=== PATIENT | male | born 1960 | race Caucasian/White ===

== ENCOUNTER 2016-09-25 07:26 | Emergency (ER) | payer OTHER ==
[~2016-09-25] VITALS: Ht 188 cm; Wt 131.0 kg
[~2016-09-25 07:26] MED LIST: ADVIL; BACTDS PO; CEPH-443 PO
[2016-09-25 07:36] VITALS: Ht 188 cm; Wt 131.0 kg
[2016-09-25] MEDS ORDERED: PROM5SYR2 PO (07:54)
[2016-09-25] MEDS ORDERED: LEVO750T25 PO (07:54)
[2016-09-25 08:07] VITALS: BP 111/68; PULSE 70; RESP 20; TEMP 97.9
--- NOTE | 2016-09-25 10:34 | ERD ---
DATE OF SERVICE: 09/25/2016 HISTORY OF PRESENT ILLNESS: The patient is a 56-year-old male coming in complaining of a cough with wheezing for the last 4 days. The patient states he had a fever 4 days ago and had the flu, is now resolved; however, he has had a congested cough. He does not feel short of breath. He has been ta pacheco [id number] cough medicine with no alleviation of symptoms. He does not have a fever. PAST MEDICAL HISTORY: Denies any other medical problems. ALLERGIES TO MEDICATIONS: DENIES. PAST SURGICAL HISTORY: Denies. REVIEW OF SYSTEMS: A 12-point review of systems was done. Refer to HPI for positives, all other sy stems negative. PHYSICAL EXAMINATION: VITAL SIGNS: Temperature is 97.7, pulse 68, blood pressure is 131/68, respiratory rate 20, O2 satur ation 95% on room air. Pain intensity is 0/10. GENERAL: The patient is well-appearing, well-nourished, no acute distress. HEENT: Atraumatic. Conjunctivae are pink. Pupils equal, round, and reactive to light. There is no s cleral icterus. Tympanic membranes clear bilaterally. Oropharynx clear. No nystagmus or photophobia . CHEST: The patient has coarse breath sounds throughout with mild rhonchi. No wheezing, no stridor. HEART: Regular rate and rhythm. No murmurs, clicks, rubs or gallops. No S3 or S4. ABDOMEN: Soft, nontender and nondistended. Good bowel sounds. No rebound or guarding. No gross alisha tonitis. No gross organomegaly or masses. No Mora sign or McBurney point tenderness. DIAGNOSIS: Cough. MEDICAL DECISION MAKING: High suspicion for early pneumonia as patient's breath sounds are coarse a nd symptoms seem to be worsening over the last few days. The patient will be treated with antibioti cs. I have low suspicion for respiratory distress or hypoxia. Low suspicion for sepsis. DISCHARGE: The patient is discharged stable. The patient is given a prescription for Levaquin and Phenergan with Codeine and told to follow up with primary care within 1 to 2 days for reevaluation. The patient was told if symptoms progress or worsen, to return to the ER. All other questions answ ered at the time of discharge. Discharge summary given at the time of departure. The patient under stood and complied with plan. Dictated By: SHELBIE BEAVERS for ZIGGY SIMPSON/ALESSANDRO Conf#: [id number] DID#: [id number]
== END 2016-09-25 08:08 | disposition home or self-care (01) ==
LOC: FTE 07:26
DX: R05 Cough (principal); I10 Essential (primary) hypertension
CPT/HCPCS: 99284